=== PATIENT | female | born 1990 | race Caucasian/White ===

== ENCOUNTER 2023-04-18 11:04 | Day surgery (SDC) | payer OTHER ==
[2023-04-15 15:48] VITALS: BMI 23.5
[2023-04-18] MEDS ORDERED: LIDOCAINE HCL/PF 2% SDV 5ML VIAL ONE (14:11)
[2023-04-18] MEDS ORDERED: PROPOFOL 20 ML ONE (14:12)
[2023-04-18] MEDS ORDERED: MIDAZOLAM HCL 2 MG/2 ML SINGLE DOSE VIAL ONE (14:12)
[2023-04-18] MEDS ORDERED: SUCCINYLCHOLINE CHLORIDE 200 MG/10 ML SYRINGE ONE (14:12)
[2023-04-18] MEDS ORDERED: ROPIVACAINE HCL 0.5% 30ML VIAL ONE (17:03)
[2023-04-18] MEDS ORDERED: DEXAMETHASONE SOD PHOSPHATE 4 MG/1 ML VIAL ONE (17:33)
[2023-04-18] MEDS ORDERED: ceFAZolin SODIUM 1 GM VIAL ONE (17:33)
[2023-04-18] MEDS ORDERED: KETOROLAC TROMETHAMINE 30 MG/1 ML VIAL ONE (18:37)
[2023-04-18] MEDS ORDERED: ONDANSETRON 4 MG/2 ML VIAL ONE (18:37)
[2023-04-18] MEDS ORDERED: oxyCODONE HCL 5 MG TABLET PO PRN ×2 (19:06)
[2023-04-18] MEDS ORDERED: PROMETHAZINE HCL 25 MG/1 ML VIAL IVPB PRN (19:06)
[2023-04-18] MEDS ORDERED: ACETAMINOPHEN 1000 MG/100 ML BAG IVPB ONE (19:07)
[2023-04-18 19:11] VITALS: TEMP 98.5
[2023-04-18] MEDS ORDERED: LACTATED RINGERS SOLUTION 1,000 ML IV SCH (19:15)
[2023-04-18 19:52] VITALS: RESP 16
[2023-04-18 20:02] VITALS: BP 135/70; PULSE 84
== END 2023-04-18 19:57 | disposition home or self-care (01) ==
LOC: FASU 11:04
PROVIDERS: ATTEND Orthopaedic Surgery Sports Medicine
PROC: 0LQN0ZZ Repair Right Lower Leg Tendon, Open Approach (ICD-10-PCS; principal; 2023-04-18 17:49)
DX: S86.011A Strain of right Achilles tendon, initial encounter (principal); X58.XXXA Exposure to other specified factors, initial encounter; Y92.9 Unspecified place or not applicable; Y93.9 Activity, unspecified
CPT/HCPCS: 27650; C1713; 81025; 94760